=== PATIENT | male | born 1960 | race Caucasian/White ===

== ENCOUNTER → 2016-05-11 | Outpatient (CLI) | payer BC ==
[2016-05-11 16:14] LABS: Basophils # (A) 0.1 k/uL (0-0.2); Basophils % (A) 1 %; CHCM 34.6; Eosinophils # (A) 0.2 k/uL (0-0.7); Eosinophils % (A) 3 %; HCT 42.7 % (39.0-53.0); HDW 2.78; HGB 14.5 gm/dL (13.0-17.5); Luc # (Auto) 0.25; Luc % (Auto) 4; Lymphocytes # (A) 1.9 k/uL (1.0-4.8); Lymphocytes % (A) 31 %; MCH 29.5 pg (25.0-35.0); MCHC 33.9 g/dL (31.0-37.0); MCV 87.1 fL (80.0-100.0); Mean Platelet Volume 7.5; Monocytes # (A) 0.4 k/uL (0-1.0); Monocytes % (A) 6 %; Neutrophils # (A) 3.4 k/uL (1.3-7.7); Neutrophils % (A) 55 %; RBC 4.91 m/uL (4.30-5.90); WBC 6.2 k/uL (3.8-10.6); WBC (Perox) 6.26
[2016-05-11 16:15] LABS: Appearance,Urine Clear (Clear); Bilirubin,Urine Negative (Negative); Glucose,Urine (UA) 3+ (Negative); Ketones,Urine Negative (Negative); Leukocyte Esterase,Urine Negative (Negative); Nitrite,Urine Negative (Negative); PH, Urine 5.5 (5.0-8.0); Protein,Urine Negative (Negative); Specific Gravity,Urine 1.007 (1.001-1.035); UA Billing (MACRO vs. MICRO) CHEM; Urobilinogen,Urine <2.0 mg/dL (<2.0)
[2016-05-11 16:24] LABS: Partial Thromboplastin Time 24.1 sec (22.0-30.0); Prothrombin Time 10.4 sec (9.0-12.0)
[2016-05-11 16:26] LABS: Anion Gap 11 mmol/L; Blood Urea Nitrogen 16 mg/dL (9-20); Carbon Dioxide 30 mmol/L (22-30); Chloride 101 mmol/L (98-107); Glucose 118 mg/dL (74-99); Non-African American GFR(MDRD) >60 (>60 ml/min/1.73 sqM); Potassium 5.1 mmol/L (3.5-5.1); Sodium 142 mmol/L (137-145)
== END | disposition home or self-care (01) ==
LOC: LABPAT 15:50
PROVIDERS: ATTEND Orthopaedic Surgery Orthopaedic Surgery of the Spine
DX: Z01.818 Encounter for other preprocedural examination (principal)
CPT/HCPCS: 71020; 80048; 81003; 85025; 85610; 85730; 86850; 86900; 86901

== ENCOUNTER → 2016-05-11 | Outpatient (CLI) | payer BC ==
--- NOTE | 2016-05-11 15:48 | XR ---
EXAMINATION TYPE: XR chest 2V DATE OF EXAM: 05/11/2016 3:43 PM COMPARISON: NONE HISTORY: Presurgical study TECHNIQUE: Frontal and lateral views of the chest are obtained. 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 There is no focal ai r space opacity, pleural effusion, or pneumothorax seen. The cardiac silhouette size is within joey l limits. The osseous structures are intact. IMPRESSION: No acute cardiopulmonary process.
== END ==
LOC: RADXRMAIN 15:32
PROVIDERS: ATTEND Orthopaedic Surgery Orthopaedic Surgery of the Spine
DX: Z01.818 Encounter for other preprocedural examination (principal)
CPT/HCPCS: 71020

== ENCOUNTER 2016-05-20 09:04 | Inpatient (IN) | payer BC ==
[2016-05-08 10:29] VITALS: BMI 22.8
[~2016-05-20 09:04] MED LIST: BACITRACIN 50,000 UNIT, POLYMYXIN B 500,000 UNIT in SODIUM CHLORIDE 0.9% IRRIGATIO 1,00... IRRIGATION ONE; DEXAMETHASONE SOD PHOSPHATE 10 MG/ML 1 ML VIAL IV ONE; HYDROmorphone 1 MG/ML 1 ML SYRINGE IVP PRN; LIDOCAINE 1% 20 ML VIAL (10MG/ML) FOR IV START INTRADERMA PRN; MIDAZOLAM 2 MG/2 ML VIAL IV PRN; ONDANSETRON 4 MG/2 ML VIAL IVP ONE; SCOPOLAMINE 1.5MG/72HR PATCH TRANSDERM ONE; ceFAZolin 2 GM in SODIUM CHLORIDE 0.9% 100 ML IVPB ONE
[2016-05-20] MEDS: LACTATED RINGERS 1,000 ML IV SCH (10:11)
[2016-05-20 10:18] LABS: Glucose,Whole Blood 136 mg/dL (75-99)
[2016-05-20] MEDS ORDERED: methylPREDNISolone ACETATE 40 MG/ML 1 ML VIAL MISCELLANE ONE (12:52)
[2016-05-20] MEDS ORDERED: LIDOCAINE 1% INJ 10MG/ML (20 ML MDV) ONE (12:52)
[2016-05-20] MEDS ORDERED: BUPIVACAINE (PF) 0.25% 30 ML VIAL SQ ONE (12:52)
[2016-05-20] MEDS ORDERED: ROCURONIUM BROMIDE 10 MG/ML 10 ML VIAL IV ONE (12:52)
[2016-05-20] MEDS ORDERED: MIDAZOLAM 2 MG/2 ML VIAL ONE (12:52)
[2016-05-20] MEDS ORDERED: GELATIN SPONGE,ABSORB (LARGE) 1 EACH SPONGE TOPICAL ONE (12:52)
[2016-05-20] MEDS ORDERED: THROMBIN (BOVINE) 5,000 UNIT VIAL TOPICAL ONE (12:52)
[2016-05-20] MEDS ORDERED: ePHEDrine 50 MG/ML 1 ML AMP ONE (12:52)
[2016-05-20] MEDS ORDERED: SUCCINYLCHOLINE CHLORIDE 100 MG/5 ML SYR IV ONE (12:52)
[2016-05-20] MEDS ORDERED: PROPOFOL 10 MG/ML 20 ML VIAL IV ONE (12:52)
[2016-05-20] MEDS ORDERED: LIDOCAINE 0.5%-EPI 1:200,000 50 ML VIAL SQ ONE (12:52)
[2016-05-20] MEDS ORDERED: HYDROmorphone (PF) 1 MG/ML ONE (12:52)
[2016-05-20] MEDS ORDERED: PHENYLEPHRINE-0.9% NACL SYG 1 MG/10 ML SYRINGE ONE (12:52)
[2016-05-20] MEDS ORDERED: fentaNYL (PF) 50 MCG/ML 2 ML AMP ONE (12:52)
[2016-05-20] MEDS ORDERED: LACTATED RINGERS 1,000 ML IV ONE (13:24)
[2016-05-20] MEDS ORDERED: NITROGLYCERIN SL TABS 0.4 MG TAB SUBLINGUAL PRN (14:04)
--- NOTE | 2016-05-20 14:04 | P.OP ---
Date of Procedure: 05/20/16 Preoperative Diagnosis: Herniated nucleus pulposis L4 5, right lower extremity weakness, right lower extremity radiculopathy Postoperative Diagnosis: Same Anesthesia: GETA Pathology: none sent Condition: stable Disposition: PACU Description of Procedure: BRIEF OPERATIVE NOTE Preoperative Diagnosis: Herniated nucleus pulposis L4 5, right lower extremity weakness, right lower extremity radiculopathy Postoperative Diagnosis: Same Procedure: Laminectomy and decompression L4-L5 Discectomy for decompression L4-L5 Use of C-arm guidance Surgeon: Dr. Nelson Career Professional: Alo Gallegos is present throughout the entire the case persistence during positioning, dissection, exposure, visualization, and all crucial elements of the case as well as closure. Anesthesia: General anesthesia Estimated blood loss: Approximately 20 mL Complications: None apparent Components implanted: None Disposition: To recovery room in good stable condition. OPERATIVE INDICATIONS The patient has been having issues in their lower back and lower extremities. His found have a large disc herniation at L4 5 and significant right lower extremity weakness with dorsiflexion. His symptoms correlated well with his imaging findings and he was having worsening pain with significant debility due to his disc herniation at L4 5. The patient has been through conservative treatment. He is not having any lasting benefit despite aggressive conservative treatment. We discussed various treatment options including surgery, and the patient wishes to proceed with surgery We discussed the risk, patient's alternatives and benefits of surgery including but not limited to, risk of bleeding risk of infection, risk of need for further surgery, risk of decreased, loss of motion, loss of function, nerve damage, paralysis, heart attack, blindness and . OPERATIVE SUMMARY After discussing all the risks, patient alternatives and benefits at length, the patient elected to proceed with surgical intervention, signed informed consent, and presented for their procedure. The patient was seen and examined in the preoperative holding area and the surgical site was marked. The patient was given antibiotics and brought to the operating room. The patient was sedated and intubated by anesthesia in standard fashion. The patient was positioned on to the operating room table in a prone position on the appropriate frame which was well-padded and well molded. We were careful to pad any bony prominences and pressure points. We were careful to maintain the patient's cervical spine and good neutral alignment and position throughout. The patient was prepped and draped in a normal standard fashion. An appropriate timeout and keystone protocol performed. We were able to proceed with the surgery. Fluoroscopy was utilized to establish the appropriate level. The local wound area was infiltrated with local anesthetic. An incision was made at the midline longitudinally over the appropriate levels at L4 5. Dissection was taken down subcutaneously to the level of the fascia which was split midline. Dissection was taken over the lamina. Intraoperative fluoroscopy was taken which showed a marker at the appropriate level at L4 5. With the appropriate level positively confirmed, we were able to proceed with laminectomy. The wound was copiously irrigated and suctioned dry as had been done periodically throughout the case. I performed a laminectomy with a combination of curettes and a high-speed bur and Kerrison rongeurs. A small medial facetectomy was performed again further access. A partial foraminotomy was also performed. Portions of the ligamentum flavum were taken down to expose the dura and traversing nerve root. I was able to mobilize the traversing nerve root and gain access to the disc space. Note was made of obvious compression from the disc. Protecting the soft tissue structures, a small annulotomy was established. I was able to perform discectomy and remove any extruded disc fragments and any loose fragments from within the disc itself. Large fragments of extruded disc removed giving good decompression. There is some disc desiccation noted. I tried to preserve the disc annulus that appeared stable. There were no further extruded fragments noted. There is no evidence of dural tear or leak. Good hemostasis maintained. The wound was copiously irrigated and suctioned dry. Good decompression and discectomy was noted. We were able to proceed with closure. The fascia was closed for a watertight closure. The subcuticular tissue was closed with absorbable suture. The wound was cleaned and dried and dressed with the appropriate dressing. The drapes were broken down. The patient was gently rolled back onto their hospital bed being careful to maintain their cervical spine and good neutral alignment and position. They were woken up by anesthesia, extubated, and brought to the recovery room in good stable condition. The patient will be admitted to the hospital for observation and for appropriate postoperative care, medical management and monitoring. We will continue to follow them closely about the postoperative course.
[2016-05-20] MEDS ORDERED: HYDROmorphone 1 MG/ML 1 ML SYRINGE IVP PRN ×2 (14:05)
[2016-05-20] MEDS ORDERED: IBUPROFEN 600 MG TAB PO PRN (14:05)
[2016-05-20] MEDS ORDERED: BENZOCAINE/MENTHOL LOZENG 1 EACH LOZENGE MUCOUS MEM PRN (14:05)
[2016-05-20] MEDS ORDERED: DIAZEPAM 5 MG TAB PO PRN (14:05)
[2016-05-20] MEDS ORDERED: KETOROLAC 30 MG/ML 1 ML VIAL IVP PRN (14:05)
[2016-05-20] MEDS ORDERED: HYDROcodone/APAP 5-325MG 1 EACH TAB PO PRN (14:05)
--- NOTE | 2016-05-20 14:05 | XR ---
Fluoroscopy History: Lumbar discectomy Lumbar discectomy with dr. rangel. 4 sec fl and 1 image scanned in.
[2016-05-20 14:45] LABS: Glucose,Whole Blood 116 mg/dL (75-99)
[2016-05-20] MEDS: HYDROcodone/APAP 5-325MG 1 EACH TAB PO PRN ×2 (16:03→21:57)
[2016-05-20] MEDS: SODIUM CHLORIDE 0.9% 1,000 ML IV SCH (17:36)
[2016-05-20] MEDS: metFORMIN 500 MG TAB PO SCH (17:39)
[2016-05-20] MEDS: SILDENAFIL 20 MG TAB PO SCH ×2 (17:56→21:57)
[2016-05-20] MEDS ORDERED: NON-FORMULARY DRUG (Fish Oil/Dha/Epa [Fish Oil 1,200 Mg Fish Oil] 1 EACH) PO SCH (18:00)
[2016-05-20] MEDS: GABAPENTIN 400 MG CAP PO SCH ×2 (18:15→21:57)
[2016-05-20 20:18] LABS: Glucose,Whole Blood 182 mg/dL (75-99)
[2016-05-20] MEDS ORDERED: ASPIRIN 81 MG CHEW PO SCH (21:00)
[2016-05-20] MEDS ORDERED: [UNRECOGNIZED DRUG - OTHER] PO SCH (21:00)
[2016-05-20] MEDS ORDERED: GLIPIZIDE PO SCH (21:00)
[2016-05-20] MEDS ORDERED: METFORMIN HCL PO SCH (21:00)
[2016-05-20] MEDS ORDERED: ATORVASTATIN 20 MG TAB PO SCH (21:00)
[2016-05-20] MEDS: METOPROLOL TARTRATE 50 MG TAB PO SCH (21:57)
[2016-05-20] MEDS: ceFAZolin 2 GM in SODIUM CHLORIDE 0.9% 100 ML IVPB SCH (21:57)
[2016-05-21] MEDS: ceFAZolin 2 GM in SODIUM CHLORIDE 0.9% 100 ML IVPB SCH (05:30)
[2016-05-21] MEDS: HYDROcodone/APAP 5-325MG 1 EACH TAB PO PRN ×2 (05:33→09:07)
[2016-05-21 07:45] LABS: Glucose,Whole Blood 141 mg/dL (75-99)
[2016-05-21] MEDS: LACTATED RINGERS 1,000 ML IV SCH (08:41)
[2016-05-21] MEDS: metFORMIN 500 MG TAB PO SCH (08:47)
[2016-05-21] MEDS: SILDENAFIL 20 MG TAB PO SCH (08:47)
[2016-05-21] MEDS: METOPROLOL TARTRATE 50 MG TAB PO SCH (08:47)
[2016-05-21] MEDS: GABAPENTIN 400 MG CAP PO SCH (08:47)
[2016-05-21] MEDS: SODIUM CHLORIDE 0.9% 1,000 ML IV SCH (08:48)
[2016-05-21 08:59] VITALS: BP 108/58; PULSE 85; RESP 18; TEMP 98
[2016-05-21] MEDS ORDERED: LISINOPRIL 20 MG TAB PO SCH (09:00)
--- NOTE | 2016-05-21 09:27 | P.DS ---
Providers Date of admission: 05/20/16 09:42 Attending physician: Chencho Nelson Primary care physician: [facility] Course: The patient presented on the day of admission as per his operative note. He had a large disc herniation at his lumbar spine for which she had laminectomy and discectomy. He feels his legs have significant improved with his surgery. He feels his sensation is significant improvement pain is diminished. His pain of his back is adequately told with oral medications. He is not having nausea vomiting and he is ambulatory into the [place]. Physical Exam The incision site is clean dry and intact. There is no erythema no drainage. There is no purulence no evidence of infection. His back is clear Abdomen soft and nontender. Chest has good excursion with deep inspiration and expiration. The patient has active and passive range of motion intact at the upper and lower extremities. There is mild improvement in neurologic status at his right lower extremity. His sensation seems to be somewhat improved and he has some motion with dorsiflexion although he still has some weakness Hospital Course Postoperative day #1 status post laminectomy with discectomy for his disc herniation and right lower extremity radiculopathy weakness The patient has been making good progress postoperatively. They have completed the prophylactic antibiotics without any signs or symptoms of infection. The patient has been able to advance their diet, and is tolerating diet adequately. The pain was initially controlled with IV medications and is now controlled appropriately with oral medications. The patient has been able to increase their mobilization. The patient has progressed appropriately. I think they are in good stable condition for discharge today. They will be sent home with appropriate prescriptions. I answered their questions to the best of my ability in a language that they can understand and they are agreeable with the plan. They will follow up as directed in approximately 2 weeks or sooner if he is having any problems. Patient Condition at Discharge: Good Plan - Discharge Summary New Discharge Prescriptions: HYDROcodone/APAP 5-325MG [[place] 5-325] 1 - 2 tab PO Q6HR PRN #90 tab PRN Reason: Pain Discharge Medication List Aspirin [Adult Low Dose Aspirin EC] 81 mg PO HS 05/08/16 [History] Fish Oil/Dha/Epa [Fish Oil 1,200 mg Fish Oil] 1 cap PO QID 05/08/16 [History] Gabapentin [Neurontin] 400 mg PO TID 05/08/16 [History] Metoprolol Tartrate [Lopressor] 50 mg PO BID 05/08/16 [History] Nitroglycerin Sl Tabs [Nitrostat] 0.4 mg SUBLINGUAL Q5M PRN 05/08/16 [History] Ramipril [Altace] 10 mg PO DAILY 05/08/16 [History] Ranitidine HCl [Zantac] 150 mg PO BID 05/08/16 [History] Sildenafil Citrate [Sildenafil] 20 mg PO TID 05/08/16 [History] Simvastatin [Zocor] 40 mg PO HS 05/08/16 [History] glipiZIDE/METFORMIN HCL [glipiZIDE/METFORMIN HCL 2.5-500 mg] 2 tab PO BID [History] HYDROcodone/APAP 5-325MG [[place] 5-325] 1 - 2 tab PO Q6HR PRN #90 tab 05/20/16 [ Rx] Follow up Appointment(s)/Referral(s): Chencho Nelson, [Doctor of Osteopathic Medicine] - 06/05/16 1:00 pm (With Alo Agee at Dr. Nelson's office) Patient Instructions/Handouts: *Surgery [facility] - ([place]) Lumbar Surgery Discharge Instructions, Hydrocodone/Acetaminophen (By mouth) Activity/Diet/Wound Care/Special Instructions: Keep site clean and dry. May shower with waterproof dressing intact. Do not soak in a tub. On Wednesday, may remove dressing and then may shower with area uncovered, but leave Steri-Strips intact and allow them to fray off on their own. May ambulate to tolerance. Avoid heavy or rigorous activity. No repetitive bending, twisting or lifting. No lifting greater than 20 pounds.
== END 2016-05-21 10:47 | disposition home or self-care (01) | DRG 520 ==
LOC: 2ORMAIN 09:42 → 5MS5E 14:12
PROVIDERS: ADMIT Orthopaedic Surgery Orthopaedic Surgery of the Spine; ATTEND Orthopaedic Surgery Orthopaedic Surgery of the Spine
PROC: 0ST20ZZ Resection of Lumbar Vertebral Disc, Open Approach (ICD-10-PCS; principal; 2016-05-20 12:20)
PROC: 01NB0ZZ Release Lumbar Nerve, Open Approach (ICD-10-PCS; principal; 2016-05-20 12:20)
DX: M51.16 Intervertebral disc disorders with radiculopathy, lumbar region (principal); I10 Essential (primary) hypertension; M48.06 Spinal stenosis, lumbar region; Z79.82 Long term (current) use of aspirin; Z79.899 Other long term (current) drug therapy; E11.9 Type 2 diabetes mellitus without complications; Z79.84 Long term (current) use of oral hypoglycemic drugs; K21.9 Gastro-esophageal reflux disease without esophagitis; I25.10 Atherosclerotic heart disease of native coronary artery without angina pectoris; I25.2 Old myocardial infarction; I73.9 Peripheral vascular disease, unspecified; Z95.1 Presence of aortocoronary bypass graft; Z95.820 Peripheral vascular angioplasty status with implants and grafts; Z87.891 Personal history of nicotine dependence
CPT/HCPCS: 72020; 84132; 86850; 86900; 86901